=== PATIENT | female | born 1985 | race Hispanic/Latino ===

== ENCOUNTER 2017-02-10 03:11 | Emergency (ER) | payer OTHER ==
[2017-02-10 03:23] VITALS: BP 118/81; PULSE 92; RESP 17; TEMP 98; O2SAT 99
--- NOTE | 2017-02-10 03:35 | ED PDOC ---
HPI: CCC, URI, Sore Throat Time Seen by Provider: 02/10/17 03:22 Chief Complaint (Nursing): ENT Problem Chief Complaint (Provider): throat pain History Per: Patient History/Exam Limitations: no limitations Onset/Duration Of Symptoms: Hrs Current Symptoms Are (Timing): Still Present Location Of Pain: Throat Additional History Per: Patient Additional Complaint(s): 31 y/o female presents for eval of sore throat x 1 day. Patient noted slight irritation in the am, which has gotten progressively worse throughout the day. Associated nasal drainage. Patient took a Mucinex without relief and is concerned that throat is becoming rapidly more swollen and painful and that she is leaving for vacation today. Denies fever, difficulty speaking/swallowing, cough, vomiting, chest pain, shortness of breath, palpitations. Past Medical History Reviewed: Historical Data, Nursing Documentation, Vital Signs Vital Signs: Last Vital Signs Temp 98.0 F 02/10/17 03:16 Pulse 92 H 02/10/17 03:16 Resp 17 02/10/17 03:16 BP 118/81 02/10/17 03:16 Pulse Ox 99 02/10/17 03:35 - Medical History PMH: No Chronic Diseases - Surgical History Other surgeries: ACL surgery, bilateral - Family History Family History: States: No Known Family Hx - Living Arrangements Living Arrangements: Alone - Home Medications Home Medications: Ambulatory Orders Medication Instructions Recorded Fluticasone Nasal [Flonase] 1 actuation NS BID #1 bottle 02/10/17 Ibuprofen [Motrin Tab] 1 tab PO Q6 PRN #20 tab 02/10/17 - Allergies Allergies/Adverse Reactions: Allergies Allergy/AdvReac Type Severity Reaction Status Date / Time amoxicillin Allergy Mild RASH Verified 02/10/17 03:23 Penicillins Allergy Mild RASH Verified 02/10/17 03:24 shellfish derived Allergy Mild SWELLING Verified 02/10/17 03:24 Review of Systems ROS Statement: Except As Marked, All Systems Reviewed And Found Negative ENT: Positive for: Throat Pain Physical Exam - Reviewed Nursing Documentation Reviewed: Yes Vital Signs Reviewed: Yes - Physical Exam Appears: Positive for: Well, Non-toxic, No Acute Distress Head Exam: Positive for: ATRAUMATIC, NORMAL INSPECTION, NORMOCEPHALIC Skin: Positive for: Normal Color Eye Exam: Positive for: Normal appearance ENT: Positive for: Pharyngeal Erythema, Other (uvula midline, airway patent). Negative for: Tonsillar Exudate, Tonsillar Swelling Cardiovascular/Chest: Positive for: Regular Rate, Rhythm Respiratory: Positive for: Normal Breath Sounds Gastrointestinal/Abdominal: Positive for: Normal Exam Back: Positive for: Normal Inspection Extremity: Positive for: Normal ROM Lymphatic: Positive for: Normal Exam Neurologic/Psych: Positive for: Alert, Oriented - ECG O2 Sat by Pulse Oximetry: 99 - Progress ED Course And Treament: rapid strep, ibuprofen, decadron im Patient educated on findings, discharged with rx ibuprofen, flonase. Advised follow up PMD 2-3 days. Return to ED for worsening/concerning symptoms. Disposition - Clinical Impression Clinical Impression: Pharyngitis - Patient ED Disposition Is Patient to be Admitted: No Counseled Patient/Family Regarding: Studies Performed, Diagnosis, Need For Followup, Rx Given - Disposition Disposition: Routine/Home Disposition Time: 04:28 Condition: IMPROVED Prescriptions: Fluticasone Nasal [Flonase] 1 actuation NS BID #1 bottle Ibuprofen [Motrin Tab] 1 tab PO Q6 PRN #20 tab PRN Reason: Pain, Moderate (4-7) Instructions: Pharyngitis (ED) Forms: Vyyo (Japanese)
== END 2017-02-10 04:33 | disposition home or self-care (01) ==
LOC: H.ER 03:11
DX: J02.9 Acute pharyngitis, unspecified (principal); Z88.0 Allergy status to penicillin
CPT/HCPCS: 81025; 87070; 87430; 96372; 99282; J1100